=== PATIENT | female | born 2000 | race Caucasian/White ===

== ENCOUNTER 2019-03-23 13:24 | Emergency (ER) | payer BC ==
[~2019-03-23] VITALS: Ht 175.3 cm; Wt 56.7 kg
[2019-03-23 13:33] VITALS: BP 109/66; Ht 175.3 cm; Wt 56.7 kg
== END 2019-03-23 14:21 | disposition home or self-care (01) ==
LOC: ED 13:24
DX: R30.0 Dysuria (principal); R31.9 Hematuria, unspecified; R39.15 Urgency of urination; R11.0 Nausea; R10.30 Lower abdominal pain, unspecified
CPT/HCPCS: 87491; 87591; J0696